=== PATIENT | male | born 1980 | race Caucasian/White ===

== ENCOUNTER 2017-07-21 21:55 | Emergency (ER) | payer SELFPAY | END 2017-07-21 22:12 | disposition left against medical advice (07) | LOC: E/R 22:12 | DX: Z53.21 Procedure and treatment not carried out due to patient leaving prior to being seen by health care provider (principal) ==

== ENCOUNTER 2017-08-08 21:19 | Emergency (ER) | payer SELFPAY | END 2017-08-08 22:15 | disposition left against medical advice (07) | LOC: E/R 22:15 | DX: R07.9 Chest pain, unspecified (principal); Z87.891 Personal history of nicotine dependence | CPT/HCPCS: 93005; 99283-25 ==

== ENCOUNTER 2017-12-08 12:02 | Emergency (ER) | payer SELFPAY ==
[2017-12-08] MEDS: IBUPROFEN 600 MG TAB PO (14:11)
[2017-12-08 14:22] LABS: ADD UMIC YES; UR ASCORBIC ACID NEGATIVE (NEGATIVE); UR BILIRUBIN (Dip) NEGATIVE (NEGATIVE); UR BLOOD (Dip) 1+ mg/dL (NEGATIVE); UR CLARITY CLEAR (CLEAR); UR COLOR YELLOW (YELLOW); UR GLUCOSE (Dip) NEGATIVE (NEGATIVE); UR KETONES (Dip) NEGATIVE (NEGATIVE); UR LEUKOCYTE ESTERASE (Dip) NEGATIVE Leu/ul (NEGATIVE); UR MUCUS FEW /HPF (NONE SEEN); UR NITRITE (Dip) NEGATIVE (NEGATIVE); UR RBC 3 /HPF (0-5); UR SPECIFIC GRAVITY (Dip) 1.018 (1.003-1.030); UR TOTAL PROTEIN (Dip) NEGATIVE (NEGATIVE); UR UROBILINOGEN (Dip) 1+ mg/dL (NEGATIVE); UR WBC 1 /HPF (0-5)
[2017-12-08] MEDS: HYDROCODONE/APAP (5/325) TAB PO (14:39)
== END 2017-12-08 16:09 | disposition home or self-care (01) ==
LOC: FTE 12:02
DX: M54.5 Low back pain (principal); F17.210 Nicotine dependence, cigarettes, uncomplicated
CPT/HCPCS: 72100; 81001; 99284-25

== ENCOUNTER 2018-04-22 13:41 | Emergency (ER) | payer MEDICAID | END 2018-04-22 15:53 | disposition home or self-care (01) | LOC: FTE 13:41 | DX: M54.5 Low back pain (principal); F17.210 Nicotine dependence, cigarettes, uncomplicated | CPT/HCPCS: 99281; Z7502 ==

== ENCOUNTER 2018-06-05 18:31 | Emergency (ER) | payer MEDICAID ==
[2018-06-05 19:59] LABS: ADD MAN DIFF? NO
[2018-06-05 20:05] LABS: WHITE BLOOD COUNT 8.4 10^3/ul (4.8-10.8)
[2018-06-05 20:05] LABS: BASOPHIL # 0.1 10^3/ul (0.0-0.1); BASOPHILS % 0.6 % (0.0-2.0); EOSINOPHILS # 0.1 10^3/ul (0.0-0.5); EOSINOPHILS % 1.4 % (0.0-7.0); LYMPHOCYTES # 3.6 10^3/ul (0.8-2.9); LYMPHOCYTES % 42.9 % (15.0-51.0); MEAN CORPUSCULAR HEMOGLOBIN 28.8 pg (29.0-33.0); MEAN CORPUSCULAR HGB CONC 33.3 g/dl (32.0-37.0); MEAN CORPUSCULAR VOLUME 86.4 fl (82.0-101.0); MEAN PLATELET VOLUME 10.4 fl (7.4-10.4); MONOCYTE # 0.7 10^3/ul (0.3-0.9); MONOCYTES % 7.9 % (0.0-11.0); NEUTROPHIL # 3.9 10^3/ul (1.6-7.5); PLATELET COUNT 213 10^3/UL (140-415); RED BLOOD COUNT 4.86 10^6/ul (4.70-6.10); RED CELL DISTRIBUTION WIDTH 13.7 % (11.5-14.5)
[2018-06-05 20:23] LABS: ALANINE AMINOTRANSFERASE 44 IU/L (13-69); ALBUMIN 4.1 g/dl (3.3-4.9); ALBUMIN/GLOBULIN RATIO 1.41; ALKALINE PHOSPHATASE 81 IU/L (42-121); ANION GAP 8 (5-13); ASPARTATE AMINO TRANSFERASE 27 IU/L (15-46); BILIRUBIN,INDIRECT 0.2 mg/dl (0-1.1); BILIRUBIN,TOTAL 0.2 mg/dl (0.2-1.3); BLOOD UREA NITROGEN 9 mg/dl (7-20); CALCIUM 9.4 mg/dl (8.4-10.2); CARBON DIOXIDE 28 mmol/L (21-31); CHLORIDE 107 mmol/L (97-110); CREATININE 0.57 mg/dl (0.61-1.24); Estimated GFR > 60 mL/min (>60); GLUCOSE 104 mg/dl (70-220); POTASSIUM 3.8 mmol/L (3.5-5.1); SODIUM 143 mmol/L (135-144)
[2018-06-05 20:35] LABS: TROPONIN-I < 0.012 ng/ml (0.000-0.120)
[2018-06-05 22:48] LABS: TROPONIN-I < 0.012 ng/ml (0.000-0.120)
== END 2018-06-05 23:20 | disposition home or self-care (01) ==
LOC: E/R 23:20
DX: R07.89 Other chest pain (principal); F17.210 Nicotine dependence, cigarettes, uncomplicated
CPT/HCPCS: 71045; 80053; 84484; 85025; 93005; 99285-25